=== PATIENT | male | born 1985 | race Caucasian/White ===

== ENCOUNTER → 2016-08-09 | Outpatient (REF) ==
[~2016-08-09] MED LIST: BACTRIM DS 8001 TAB PO; FLOMAX 0.40.4 MG/CAP PO; PERCOCET 325 MG1 TA2 PO; ULTRAM 50MG TAB50 MG PO; ZOFRAN8 MG PO
== END ==
LOC: ZLAB.WCH 13:29
DX: Z01.89 Encounter for other specified special examinations (principal)

== ENCOUNTER 2016-12-17 03:32 | Emergency (ER) | payer BC ==
[~2016-12-17] VITALS: Ht 190.5 cm; Wt 147.3 kg
[2016-12-17 03:36] VITALS: TEMP 97.5
[2016-12-17 04:33] LABS: BASO % 0.3 % (0.0-2.0); EOS # 0.1 (0.0-0.7); EOS % 0.6 % (0-4.0); GRAN # 8.9 (1.4-6.5); GRAN % 74.6 % (42.2-75.2); HEMATOCRIT 43.8 % (42.0-52.0); HEMOGLOBIN 15.8 g/dl (13.5-18.0); LYMPH # 2.3 (1.2-3.4); LYMPH % 19.1 % (20.0-51.0); MEAN CELL VOLUME 90 fl (80.0-100.0); MEAN CORPUSCULAR HEMOGLOBIN 32 pg (27.0-31.0); MEAN CORPUSCULAR HGB CONC 36 g/dl (33.0-37.0); MEAN PLATELET VOLUME 9.8 fl (7.4-10.4); MONO # 0.6 (0.1-0.6); MONO % 5.1 % (1.7-9.3); PLATELET COUNT 244 K/mm3 (130-400); RED BLOOD COUNT 4.89 M/mm3 (4.20-5.60); REDCELL DISTRIBUTION WIDTH-CV 13.3 % (11.5-14.5); WHITE BLOOD COUNT 11.9 K/mm3 (4.8-10.8)
[2016-12-17 04:42] LABS: CALCIUM 9.4 mg/dL (8.4-10.2); CREATININE, serum 0.97 mg/dL (0.66-1.25)
[2016-12-17 04:55] LABS: SQUAMOUS EPITHELIAL None Seen /hpf; URINE BACTERIA None Seen /hpf; URINE RBC >50 /hpf
[2016-12-17 04:57] LABS: PH 8 (5-8); URINE APPEARANCE Hazy; URINE BILIRUBIN Positive (NEGATIVE); URINE BLOOD 2+ (NEGATIVE); URINE COLOR Yellow; URINE GLUCOSE Negative (NEGATIVE); URINE KETONE Negative (NEGATIVE); URINE UROBILINOGEN Negative (NEGATIVE)
[2016-12-17] MEDS ORDERED: ZOFRAN8 MG PO (05:02)
[2016-12-17] MEDS ORDERED: ULTRAM 50MG TAB50 MG PO (05:02)
[2016-12-17] MEDS ORDERED: FLOMAX 0.40.4 MG/CAP PO (05:02)
[2016-12-17] MEDS ORDERED: PERCOCET 325 MG1 TA2 PO (05:02)
[2016-12-17] MEDS ORDERED: BACTRIM DS 8001 TAB PO (05:02)
[2016-12-17 05:50] VITALS: BP 128/79; PULSE 75
== END 2016-12-17 05:45 | disposition home or self-care (01) ==
LOC: COL.ER 03:32
PROVIDERS: Emergency Medicine
DX: N20.1 Calculus of ureter (principal); R11.2 Nausea with vomiting, unspecified; R63.0 Anorexia
CPT/HCPCS: J1170; J1885; J2405; J7030; Q9967

== ENCOUNTER 2016-12-17 18:34 | Observation (INO) | payer BC ==
[~2016-12-17] VITALS: Ht 190.5 cm; Wt 156.5 kg
[2016-12-17 20:13] VITALS: BP 114/51; PULSE 77; TEMP 98.1
[2016-12-18] VITALS (11 sets, daily range): BP systolic 93–147; BP diastolic 22–86; PULSE 62–93; TEMP 97.7–98.9
== END 2016-12-18 20:30 | disposition home or self-care (01) ==
LOC: SURG 18:34
DX: N20.1 Calculus of ureter (principal); Z80.51 Family history of malignant neoplasm of kidney; Z80.8 Family history of malignant neoplasm of other organs or systems
CPT/HCPCS: C1769; C1894; C2617; G0378; J1885; J2405; J2704; J3010; J7030; J7120; Q9967